=== PATIENT | female | born 1970 | race Hispanic/Latino ===

== ENCOUNTER → 2017-06-22 | Day surgery (SDC) | payer OTHER ==
[2017-06-21 12:58] LABS: ANION GAP 15.4 mmol/L (8-16); BLOOD UREA NITROGEN 12 mg/dL (7-26); BUN/CREATININE RATIO 16 (6-25); CARBON DIOXIDE 29 mmol/L (22-29); CHLORIDE 102 mmol/L (98-107); CREATININE, SERUM 0.75 mg/dL (0.57-1.11); EST GLOMERULAR FILTRATION RATE > 60 ML/MIN (60-); GLUCOSE 124 mg/dL (74-118); POTASSIUM 4.4 mmol/L (3.5-5.1); SODIUM 142 mmol/L (136-145)
[~2017-06-22] MED LIST: BUPIVACAINE 0.5%/EPI 30 ML SDV INJ ONE; CEFAZOLIN SOD 2 GM/D5W 50ML 0 ML IV ONE; CLINDAMYCIN PHOS 900MG/ D5W 50 50 ML IV ONE; DESFLURANE 240 ML BTL INH ONE; DEXAMETHASONE SOD PHOS INJ 4 MG/ML VIAL ONE; FENTANYL CITRATE/PF 100MCG/2 ML INJ ONE; HYDROCHLOROTHIA25 MG PO; KETOROLAC TROMETHAMINE 30 MG/ML VIAL ONE; LIDOCAINE HCL 2% LOCAL INJ 5 ML SDV VIAL INJ ONE; MIDAZOLAM HCL 2 MG/2 ML VIAL ONE; ONDANSETRON HCL INJ 2 MG/ML VIAL ONE; PROPOFOL IV EMULSION 10 MG/ML 20 ML VIAL ONE
--- NOTE | 2017-06-22 23:13 | Operative Report ---
DATE OF PROCEDURE: June 22, 2017 PREOPERATIVE DIAGNOSES 1. Left knee lateral meniscus tear. 2. Left knee degenerative joint disease of the knee. POSTOPERATIVE DIAGNOSES 1. Left knee lateral meniscus tear. 2. Left knee degenerative joint disease of the knee. PROCEDURES PERFORMED: Patient underwent, 1. Left knee examination under anesthesia. 2. Left knee arthroscopy. 3. Left knee partial lateral meniscectomy. 4. Left knee chondroplasty of the patella, the medial femoral condyle, the lateral femoral condyle and the lateral tibial plateau. LAP RUNNER: None. ANESTHESIA: General endotracheal intubation. IV FLUIDS: Per the anesthesia record. DESCRIPTION OF OPERATIVE PROCEDURE: Ms. Berger was taken to the operating room and placed in supine position on the operating table. Following induction of general anesthesia as well as endotracheal intubation, the patient's left lower extremity was examined under anesthesia. She was found to have mild effusion of the knee joint, but otherwise stable knee. The patient's dorsum was prepped and draped in standard surgical fashion. A 2-portal technique was used to provide this patient arthroscopic evaluation of the knee joint. Examination of the suprapatellar pouch and medial and lateral gutters found no evidence of loose bodies. The scope was advanced to the medial compartment. Examination of the medial compartment demonstrated chondromalacia of the medial femoral condyle. There was no other pathology in the medial compartment. A chondroplasty was provided at this time. Scope was then advanced to the intercondylar notch. The anterior cruciate ligament was then found to be intact. The scope was advanced to lateral compartment and there was macerated parrot beak type meniscus tear. 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 A combination of biting forceps and motorized shaver was used to resect the torn portion of the meniscus. Chondroplasties of the lateral femoral condyle and lateral tibial plateau were performed at this time. Scope was then advanced to the suprapatellar pouch and chondroplasty of the patella was performed. The knee was then deflated with sterile normal saline. The portal sites were closed using 4-0 nylon suture. Portal sites as well as the knee itself were injected with 0.5% Marcaine with epinephrine. Sterile dressings were applied. The patient was then awakened, taken to postanesthesia care unit in stable condition. Job#: [id number] GE
== END | disposition home or self-care (01) ==
LOC: OR 11:45
PROVIDERS: ATTEND Specialist
DX: S83.282A Other tear of lateral meniscus, current injury, left knee, initial encounter (principal); M17.12 Unilateral primary osteoarthritis, left knee; M22.42 Chondromalacia patellae, left knee; I10 Essential (primary) hypertension; X58.XXXA Exposure to other specified factors, initial encounter; Z01.810 Encounter for preprocedural cardiovascular examination; Z01.812 Encounter for preprocedural laboratory examination; Z88.0 Allergy status to penicillin; Z88.6 Allergy status to analgesic agent; Z88.2 Allergy status to sulfonamides; Z88.1 Allergy status to other antibiotic agents
CPT/HCPCS: 29881; 36415; 80048; 81025; 93005; J1100; J1885; J2001; J2250; J2405

== ENCOUNTER 2017-07-13 08:56 | Outpatient (RCR) | payer OTHER ==
[~2017-07-13 08:56] MED LIST changes: -BUPIVACAINE 0.5%/EPI 30 ML SDV INJ ONE; -CEFAZOLIN SOD 2 GM/D5W 50ML 0 ML IV ONE; -CLINDAMYCIN PHOS 900MG/ D5W 50 50 ML IV ONE; -DESFLURANE 240 ML BTL INH ONE; -DEXAMETHASONE SOD PHOS INJ 4 MG/ML VIAL ONE; -FENTANYL CITRATE/PF 100MCG/2 ML INJ ONE; -KETOROLAC TROMETHAMINE 30 MG/ML VIAL ONE; -LIDOCAINE HCL 2% LOCAL INJ 5 ML SDV VIAL INJ ONE; -MIDAZOLAM HCL 2 MG/2 ML VIAL ONE; -ONDANSETRON HCL INJ 2 MG/ML VIAL ONE; -PROPOFOL IV EMULSION 10 MG/ML 20 ML VIAL ONE
== END 2017-08-11 ==
LOC: PT 08:56
PROVIDERS: ATTEND Specialist
DX: M17.12 Unilateral primary osteoarthritis, left knee (principal); M62.81 Muscle weakness (generalized)